=== PATIENT | male | born 1980 | race African-American/Black ===

== ENCOUNTER 2020-06-22 11:44 | Inpatient (IN) ==
[2020-06-22] MEDS ORDERED: SODIUM CHLORIDE 0.9% 1,000 ML IV STA (12:03)
[2020-06-22] MEDS ORDERED: ONDANSETRON 4 MG/2 ML VIAL IV ONE (12:03)
[2020-06-22] MEDS ORDERED: PANTOPRAZOLE 40 MG VIAL IV STA (12:04)
[2020-06-22 12:34] LABS: Basophils % 0.2 % (0.0-0.8); Eosinophils % 0.2 % (0.00-10.9); Hematocrit 22.7 VOL% (42.0-52.0); Hemoglobin 7.3 GM/DL (14.0-18.0); Immature Granulocytes % 1.8 %; Immature Granulocytes Absolute 0.29 #; Lymphocytes # 1.9 10*3/uL (1.4-4.0); Lymphocytes % 11.6 % (21.2-54.2); Mean Corpuscular HGB Conc 32.2 GM/DL (32-36); Mean Corpuscular Volume 105.6 FL (87-102); NRBC # 0.02 10*3/uL; Neutrophils % 82.2 % (38.7-73.9); Platelet Count 164 T/CUMM (130-400); Red Blood Count 2.15 MC/CUMM (3.8-5.5); Red Cell Distribution Width 12.4 % (9.3-17.3); White Blood Count 16.2 T/CUMM (4-12)
[2020-06-22 12:45] LABS: PT Patient Result 10.9 SECS (9.8-11.9)
[2020-06-22 12:50] LABS: Alanine Aminotransferase 38 U/L (16-61); Albumin 2.9 G/DL (3.4-5.0); Alkaline Phosphatase 53 U/L (45-117); Aspartate Amino Transferase 23 U/L (0-37); Blood Urea Nitrogen 18 MG/DL (7-18); Calcium 8.1 MG/DL (8.5-10.1); Carbon Dioxide 22 MMOL/L (21-32); Estimated Glom Filtration Rate 74 ML/MIN; Glucose 221 MG/DL (74-106); Osmolality,Calculated 278.1 MOS/KG (273-304); Potassium 3.9 MMOL/L (3.5-5.1); Sodium 135 MMOL/L (136-145); Total Protein 6.3 G/DL (6.4-8.3)
[2020-06-22 12:52] LABS: Troponin I 0.072 NG/ML (0.00-0.045)
[2020-06-22] MEDS ORDERED: SODIUM CHLORIDE 0.9% 500 ML IV STA (12:52)
[2020-06-22] MEDS ORDERED: SODIUM CHLORIDE 0.9% 1,000 ML IV PRN (13:00)
[2020-06-22] MEDS ORDERED: HYDROmorphone 2 MG/1 ML VIAL IV STA (13:34)
[2020-06-22 15:08] LABS: Bilirubin,Urine Negative (Negative); Blood, Urine Negative (Negative); Glucose,Urine (UA) Negative (Negative); Hyaline Casts,Urine 3 /LPF (0-3); Ketones,Urine Negative (Negative); Mucus,Urine Occasional /LPF (Occasional); Nitrite,Urine Negative (Negative); Protein,Urine Negative; RBC,Urine 1 /HPF (0-4); Squamous Epithelial Cell,Urine Occasional /HPF (0-10); Urine Appearance CLEAR (Clear); Urine Color Yellow (Yellow); Urine Specific Gravity > 1.060 (1.001-1.035); Urine Urobilinogen < 2.0 EU/DL (0.2-1.0); WBC,Urine 2 /HPF (0-6)
[2020-06-22] MEDS ORDERED: ALBUTEROL 2.5 MG/3 ML NEB RESP TX PRN (16:15)
[2020-06-22] MEDS ORDERED: ONDANSETRON 4 MG/2 ML VIAL IV PRN (16:15)
[2020-06-22] MEDS ORDERED: NICOTINE 7 MG/24 HR PATCH TRANSDERM PRN (16:18)
[2020-06-22] MEDS: PANTOPRAZOLE 40 MG VIAL IV SCH (16:32)
[2020-06-22] MEDS: SODIUM CHLORIDE 0.9% 1,000 ML IV SCH (16:32)
[2020-06-22] MEDS: MORPHINE 4 MG/1 ML VIAL IV PRN (19:56)
[2020-06-22 20:28] LABS: Hemoglobin 8.4 GM/DL (14.0-18.0)
[2020-06-23] MEDS: MORPHINE 4 MG/1 ML VIAL IV PRN (00:45)
[2020-06-23] MEDS: SODIUM CHLORIDE 0.9% 1,000 ML IV SCH ×2 (02:32→12:32)
[2020-06-23 03:56] LABS: Basophils % 0.3 % (0.0-0.8); Eosinophils % 0.2 % (0.00-10.9); Hematocrit 22.6 VOL% (42.0-52.0); Hemoglobin 7.3 GM/DL (14.0-18.0); Immature Granulocytes % 1.2 %; Immature Granulocytes Absolute 0.16 #; Lymphocytes # 2.6 10*3/uL (1.4-4.0); Lymphocytes % 19.4 % (21.2-54.2); Mean Corpuscular HGB Conc 32.3 GM/DL (32-36); Mean Corpuscular Volume 102.7 FL (87-102); Mean Platelet Volume 11.7 FL (9.6-12.0); NRBC # 0.03 10*3/uL; Neutrophils % 68.9 % (38.7-73.9); Platelet Count 129 T/CUMM (130-400); Red Cell Distribution Width 13.8 % (9.3-17.3); White Blood Count 13.6 T/CUMM (4-12)
[2020-06-23 04:19] LABS: Albumin 2.6 G/DL (3.4-5.0); Bilirubin,Total 0.5 MG/DL (0.2-1.0); Calcium 7.7 MG/DL (8.5-10.1); Osmolality,Calculated 276.5 MOS/KG (273-304); Potassium 3.8 MMOL/L (3.5-5.1); Risk Ratio 3.68; Thyroid Stimulating Hormone 1.3 uIU/ml (0.358-3.74); Total Protein 5.3 G/DL (6.4-8.3)
[2020-06-23 05:11] LABS: Anisocytosis 1+; Hypochromasia 1+; Microcytosis 1+; Ovalocytes Slight; Polychromasia Slight
[2020-06-23 05:12] LABS: Platelet Estimate Adequate
[2020-06-23] MEDS ORDERED: SODIUM CHLORIDE 0.9% 1,000 ML IV PRN ×2 (09:13→19:14)
[2020-06-23 10:06] LABS: Hematocrit 20.9 VOL% (42.0-52.0); Hemoglobin 6.8 GM/DL (14.0-18.0)
[2020-06-23] MEDS: PANTOPRAZOLE 40 MG VIAL IV SCH (17:07)
[2020-06-23 22:21] LABS: Hematocrit 26.9 VOL% (42.0-52.0)
[2020-06-23 22:23] LABS: Hemoglobin 8.4 GM/DL (14.0-18.0)
[2020-06-24] MEDS: SODIUM CHLORIDE 0.9% 1,000 ML IV SCH ×2 (03:14→13:14)
[2020-06-24] MEDS ORDERED: SIMETHICONE CHEW 80 MG TABLET PO PRN (09:06)
[2020-06-24 09:44] LABS: Hemoglobin 8.3 GM/DL (14.0-18.0)
[2020-06-24] MEDS ORDERED: amLODIPine 10 MG TABLET PO ONE (16:41)
[2020-06-24 16:46] LABS: Hematocrit 24.9 VOL% (42.0-52.0); Hemoglobin 8.2 GM/DL (14.0-18.0)
[2020-06-24] MEDS: PANTOPRAZOLE 40 MG VIAL IV SCH (17:22)
[2020-06-25 01:36] LABS: Hematocrit 24.5 VOL% (42.0-52.0); Hemoglobin 8.1 GM/DL (14.0-18.0)
[2020-06-25] MEDS: SODIUM CHLORIDE 0.9% 1,000 ML IV SCH ×3 (08:59→15:52)
[2020-06-25 09:54] LABS: Hemoglobin 8.5 GM/DL (14.0-18.0)
[2020-06-25] MEDS: amLODIPine 10 MG TABLET PO SCH (10:13)
[2020-06-25] MEDS: PANTOPRAZOLE 40 MG VIAL IV SCH (16:04)
[2020-06-26] MEDS: SODIUM CHLORIDE 0.9% 1,000 ML IV SCH ×2 (08:38→10:24)
[2020-06-26] MEDS: amLODIPine 10 MG TABLET PO SCH (09:26)
[2020-06-26 11:48] VITALS: BP 142/81
[2020-06-27 10:18] LABS: Chlamydia trachomatis Not Detected (NotDetected); Clostridium difficile A & B Not Detected (NotDetected); E coli (ETEC) O157 Not Detected (NotDetected); Enterovirus D Not Detected (NotDetected); Pseudomonas aeruginosa Not Detected (NotDetected); Rotavirus A & B Not Detected (NotDetected); Salmonella enterica Not Detected (NotDetected); Yersinia enterocolitica Not Detected (NotDetected)
[2020-06-27 11:32] LABS: Class A beta Lactamase Not Detected (NotDetected); mecA-Methicillin Resistance Ge Not Detected (NotDetected)
== END 2020-06-26 12:55 | disposition home or self-care (01) | DRG 811 ==
LOC: N.ED 11:44 → N.EDINP 15:00 → SUATTDRO 15:00 → N.CC 15:20 → N.3E 06-24 17:43
PROVIDERS: ADMIT Internal Medicine; ATTEND Internal Medicine